=== PATIENT | female | born 1960 | race Caucasian/White ===

== ENCOUNTER → 2022-04-10 | Day surgery (SDC) | payer OTHER ==
[~2022-04-10] VITALS: Ht 157.5 cm; Wt 74.8 kg
[~2022-04-10] MED LIST: ACID REDUCER20 MG PO; LEXAPRO 10MG TA10 MG PO; ZYRTEC10 M3 PO
== END | disposition home or self-care (01) ==
LOC: FAS 07:39
DX: Z12.11 Encounter for screening for malignant neoplasm of colon (principal); D12.2 Benign neoplasm of ascending colon; K57.30 Diverticulosis of large intestine without perforation or abscess without bleeding; K64.8 Other hemorrhoids; K64.4 Residual hemorrhoidal skin tags
CPT/HCPCS: J2250; J2704; J7120